=== PATIENT | female | born 2005 | race Caucasian/White ===

== ENCOUNTER 2025-07-18 16:01 | Outpatient (OUT) | payer OTHER, SELFPAY ==
--- OUTSIDE RECORDS SUMMARY | 2025-07-18 16:08 | XMS_ITS | Clinical Summary ---
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 Name Role Phone Unavailable Primary Care Provider Unavailabl e Social History Tobacco UseTypesPacks/DayYears UsedDateSmoking Tobacco: Never Assessed CommentsUnknownSex and Gender InformationValueDate RecordedSex Assigned at Not on fileLegal WbuJzueke08/15/2023 6:39 PM EDTGender IdentityNot on fileSexual OrientationNot on file Last Filed Vital Signs Vital SignReadingTime TakenCommentsBlood Pressure--Pulse--Temperature-- Respiratory Rate--Oxygen Saturation--Inhaled Oxygen Concentration--Gatgln15.2 kg (126 lb)11/21/2021 12:00 PM EDTHeight--Body Mass Index-- Plan of Treatment Not on file Insurance
--- OUTSIDE RECORDS SUMMARY | 2025-07-18 16:09 | XMS_ITS | Patient Health Record ---
Author Organization [facility] in [place] Address [address] [place] [address] Care Team Providers Care Vegetable Trimmer Name Role Phone Sudarshan Elijah Primary Care Provider [phone] Allergies No Known Allergies Reason For Referral No Information Social History Tobacco Use: Social History Observation Description Date Details (start date - stop date) Never Smoker NA - NA Tobacco Control (Standard) Question Answer Notes Tobacco use: Nonsmoker AUDIT-C (Standard) Question Answer Notes Did you have a drink containing alcohol in the p ast year? No Hsrhhl6QssjmjzfyskytsGglgmxfq Problems Problem Type SNOMED Code ICD Code Onset Dates Problem Status W/U Status Risk Notes Problem Ganglion (54531596) Ganglion (M67.40) Activeconfirmed Vital Signs Blood pressure diastolic 68 mm Hg 07/18/2025 Vqhtje35 in07/18/2025lood pressure abkfswye394 mm Hg07/18/20255449Cqfkkg114 lbs 07/18/2025BMI19 kg/m207/18/2025 Encounters Encounter Location Date Provider Diagnosis [facility] [address] [place] [address] 07/18/2025 Elijah Heaton Ganglion M67.40 Assessments Encounter Date Diagnosis (ICD Code) Assessment Notes Treatment Notes Treatment Clinical Notes Section Notes 07/18/2025 Ganglion (ICD-10 - M67.40) Plan Of Treatment Pending Test Test Name Order Date XR Hand 3 Views Left 07/18/2025 Insurance Providers Payer Name Payer Address Payer Phone Subscriber Number Group Number Insured Name Patient Relationship to Insured Coverage Start Date Coverage End Date MMO [employer] [address] [place] [address] [id number] James Haneyelf - patient is the insured Medical (General) History Surgical History Surgery Date(Month/Year) double hernia surgery at two months old
--- NOTE | 2025-07-18 16:12 | XR_ITS ---
[facility] [place] [id number] Patient Name: LAMONTE BURNS MRN: [id number] date: 2005 Sex: F Assigned Patient Location: [facility] Current Patient Location: Accession/Order Number: [id number] Exam Date: 07/18/2025 16:08 Report Date: 07/19/2025 01:01 At the request of: HEIDY ORTIZ MD Procedure: XR hand LT min 3V XR hand LT min 3V 07/18/2025 4:14 PM SIGNS AND SYMPTOMS: ^Ganglion, M67.40, lump between second and third metacarpals PROTOCOL: 3 views of the left hand COMPARISON: None FINDINGS: A BB marker is noted along the base of the second metacarpal. There is accompanying mild soft tissue prominence along the dorsal aspect of the base of the second metacarpal. There is no fracture or dislocation. No significant degenerative change. XR/XR hand LT min 3V IMPRESSION: A BB marker is noted along the base of the second metacarpal. There is accompanying mild soft tissue prominence along the dorsal aspect of the base of the second metacarpal. No acute bony injury or significant degenerative change. Impression dictated by: Chaitanya Rey M.D. 07/19/2025 1:01 AM Dictation Location: [place] [address] Electronically authenticated by: [id number] Y Date: 07/19/2025 01:01
== END 2025-07-18 16:02 | disposition home or self-care (01) ==
PROVIDERS: PCP Family Medicine; Visit Provider Family Medicine
DX: M67.442 Ganglion, left hand (principal); M67.40 Ganglion, unspecified site
CPT/HCPCS: 73130